=== PATIENT | male | born 1980 | race Caucasian/White ===

== ENCOUNTER 2017-06-15 18:37 | Emergency (ER) | payer OTHER ==
[~2017-06-15] VITALS: Ht 172.7 cm; Wt 62.3 kg
[~2017-06-15 18:37] MED LIST: ACID CONTROL150 MG PO; ALBUTEROL SULF8.5 GM IH; ERYTHROMYC1 APPLICAT RIGHT EYE; HYCODAN SYRUP480 ML PO; LEVOTHROID,SY0.05 MG PO; LEVOTHYROXINE88 MCG PO; NAPROSYN500 MG PO; OMEPRAZOLE40 M1 PO; ZITHROMAX Z-PA250 MG PO
[2017-06-15] MEDS ORDERED: PERCOCET 5/31 TABLET PO (20:07)
[2017-06-15 20:21] VITALS: BP 122/98
== END 2017-06-15 20:23 | disposition home or self-care (01) ==
LOC: EME 18:37
DX: S16.1XXA Strain of muscle, fascia and tendon at neck level, initial encounter (principal); W01.0XXA Fall on same level from slipping, tripping and stumbling without subsequent striking against object, initial encounter; E05.90 Thyrotoxicosis, unspecified without thyrotoxic crisis or storm; F17.200 Nicotine dependence, unspecified, uncomplicated
CPT/HCPCS: 72040; 72070; 72100; 99281; 99284; J2270

== ENCOUNTER 2018-01-12 00:09 | Emergency (ER) | payer OTHER ==
[~2018-01-12] VITALS: Ht 170.2 cm; Wt 68.8 kg
[~2018-01-12 00:09] MED LIST changes: +PERCOCET 5/31 TABLET PO
[2018-01-12] MEDS ORDERED: ERYTHROMYC1 APPLICAT BOTH EYES (00:19)
[2018-01-12 00:35] VITALS: BP 120/78
== END 2018-01-12 00:36 | disposition home or self-care (01) ==
LOC: EME 00:09
DX: H10.9 Unspecified conjunctivitis (principal); F17.200 Nicotine dependence, unspecified, uncomplicated
CPT/HCPCS: 99281; 99283